=== PATIENT | female | born 1955 | race Caucasian/White ===

== ENCOUNTER 2025-01-22 06:29 | Day surgery (SDC) | payer MEDICARE, SELFPAY ==
[2025-01-22 09:18] LABS: Glucose - Point of Care 88 mg/dl (70-99)
== END 2025-01-22 11:52 | disposition home or self-care (01) ==
LOC: GI 06:29
PROVIDERS: ATTENDING PHYSICIAN Internal Medicine Gastroenterology
DX: Z12.11 Encounter for screening for malignant neoplasm of colon (principal); K63.5 Polyp of colon; K57.30 Diverticulosis of large intestine without perforation or abscess without bleeding; K62.89 Other specified diseases of anus and rectum; K31.7 Polyp of stomach and duodenum; Z86.0100 Personal history of colon polyps, unspecified; Z15.09 Genetic susceptibility to other malignant neoplasm
CPT/HCPCS: 45385; 45380; 43251; 43239; 82962; 88305

== ENCOUNTER → 2025-02-19 09:07 | Outpatient (REF) | payer MEDICARE, SELFPAY | LOC: HWRAD 09:07 | PROVIDERS: ATTENDING PHYSICIAN Internal Medicine Gastroenterology; FAMILY PHYSICIAN Internal Medicine | DX: K76.0 Fatty (change of) liver, not elsewhere classified (principal) | CPT/HCPCS: 76700 ==